=== PATIENT | female | born 1985 | race Caucasian/White ===

== ENCOUNTER 2020-03-12 21:38 | Emergency (ER) | payer MEDICAID, SELFPAY ==
[2020-03-12 21:39] VITALS: BP 164/103; PULSE 105; RESP 20; TEMP 38.2; O2SAT 98; BMI 40.3
--- NOTE | 2020-03-12 22:14 | PC.NURSE ---
pt asked staff to call ex to come pick children up. staff attempted to call with no answer
--- NOTE | 2020-03-12 22:18 | XR_ITS ---
PROCEDURE: XR CHEST 2V CLINICAL HISTORY: cough Cough and fever and congestion COMPARISON: No exams were available for comparison FINDINGS: The cardiomediastinal silhouette and pulmonary vascularity are within normal limits. The lungs are clear without infiltrates, suspicious nodules, or pleural effusions. No acute bony abnormalities. IMPRESSION: No acute findings. Dictated by: Umberto Islas MD 03/13/2020 06:05 Umberto Islas MD in [place] 03/13/2020 06:05
[2020-03-12 22:47] LABS: Strep Scrn Group A (Rapid) Negative (Negative)
--- NOTE | 2020-03-12 22:48 | [facility].EDFEV ---
ED Disposition Clinical Impression: Bronchitis Disposition: Home, Self-Care Condition on Discharge: Good Instructions: DI for Fever (Symptom) -- Adult Additional Instructions: fluids and await covid-19 testing and use meds as directed Prescriptions: levoFLOXacin [Levaquin 500mg tab] 500 mg PO DAILY #7 tab Transmission Status: Pending to [facility] Referrals: Laura Trujillo [Primary Care Provider] - - Critical Care Critical Care Time: No Attestation: On 03/12/20, the high probability of a clinically significant, sudden or life threatening deterioration of the following system(s) required my full and direct attention, intervention and personal management. The time I documented below is in addition to time spent performing reported procedures but includes the following listed in this critical care notation. Medical Decision Making - Medical Records Medical records reviewed: Yes: I reviewed the patient's medical records. - Manish Inquiry Pt receiving controlled substance: No Vital Signs: 03/12/20 21:39 Temperature 100.7 F H Temperature Source Oral Pulse Rate [Right Radial] 105 H Respiratory Rate 20 Blood Pressure [Right Arm] 164/103 H Blood Pressure Mean [Right Arm] 123 Blood Pressure Source [Right Arm] Automatic Cuff Blood Pressure Position [Right Arm] Sitting 02 Sat by Pulse Oximetry 98 Oxygen Delivery Method Room Air - Lab Data Lab results reviewed: Yes: I reviewed the patient's lab results. Lab Results 03/12/20 22:22: Influenza Type A Ag Negative, Influenza Type B Ag Negative 03/12/20 22:22: Group A Strep Rapid Negative Orders (Tests/Meds): ED MEDICATIONS Discontinued Medications Generic Name Dose Route Start Last Admin Trade Name Mulugeta PRN Reason Stop Dose Admin Ibuprofen 800 mg 03/12/20 22:23 03/12/20 22:25 Motrin 400mg Tablet PO 03/12/20 22:24 800 mg ONCE ONE Administration ORDERS Category Date Time Status XR chest 2V Stat Exams 03/12/20 22:18 Taken Covid-19 Nasal PCR Sendout [facility] Stat [facility] 03/12/20 22:22 Received Strep Screen Confirmation Stat Micro 03/12/20 22:22 Received - Radiology Data #1 Image(s): Chest Image Reviewed: Yes I reviewed the patient's radiology image Preliminary Findings: Normal/NAD Fever HPI - General Chief Complaint: Fever Stated Complaint: Fever, headache,body aches,diarrhea Time Seen by Provider: 03/12/20 22:10 Mode of Arrival: Ambulatory Source of Information: Patient, Relative, Medical Record Limitations: No Limitations Description of Symptoms (Recalled from ER Triage Doc. by RN): Pt has c/o fever, SMITH, body aches, loss of taste and smell, productive cough, nasal congestion, and diarrhea since Saturday 03/10. Pt also c/o back pain rating 9 out of 10, sharp in nature. She presents to ED [facility] because temp was 102.7 at home. She states taking tylenol at 1830. No c/o SOA, chest pain, abd pain or N/V. - History of Present Illness HPI Narrative: sl prod cough over the last few days - no def exposure to covid-19- no rash MD complaint: fever Onset (ago): day(s) Associated symptoms: cough Relieving factors: acetaminophen Treatments prior to arrival fever: none - Related Data Home Medications Medication Instructions Recorded Confirmed Amlodipine Besylate [Norvasc 5mg 5 mg PO DAILY 03/12/20 03/12/20 tablet] Diclofenac Sodium [Diclofenac 75mg 75 mg PO BID 03/12/20 03/12/20 Tab] Dicyclomine HCl [Bentyl 10mg 20 mg PO QID 03/12/20 03/12/20 capsule] Gabapentin [Gabapentin 300mg Cap] 300 mg PO BID 03/12/20 03/12/20 Levothyroxine Sodium [Synthroid 175 mcg PO DAILY 03/12/20 03/12/20 175mcg (0.175mg) tablet] Losartan/Hydrochlorothiazide 100 mg PO DAILY 03/12/20 03/12/20 [Losartan-Hctz 100-25 mg Tab] Mirtazapine [Remeron 15mg tablet] 15 mg PO HS 03/12/20 03/12/20 Omeprazole Magnesium [Prilosec Otc 40 mg PO DAILY 03/12/20 03/12/20 20mg Tab] Venlafaxine HCl [Effexor XR 1
[2020-03-12 23:05] VITALS: BP 164/99; PULSE 99; RESP 20; TEMP 37.9; O2SAT 98
[2020-03-14 16:22] LABS: Covid-19 Nasal PCR Sendout Lex Positive
== END 2020-03-12 23:08 | disposition home or self-care (01) ==
PROVIDERS: Emergency Provider Emergency Medicine; PCP Student in an Organized Health Care Education/Training Program
DX: J20.9 Acute bronchitis, unspecified (principal); Z20.828 Contact with and (suspected) exposure to other viral communicable diseases
CPT/HCPCS: 71046; 87275; 87276; 87430; 99283; U0004